=== PATIENT | male | born 1975 | race Caucasian/White ===

== ENCOUNTER 2016-11-12 13:46 | Emergency (ER) | payer BC | END 2016-11-12 18:49 | disposition home or self-care (01) | LOC: ER 13:46 | DX: M43.6 Torticollis (principal); I10 Essential (primary) hypertension; Z79.899 Other long term (current) drug therapy; X58.XXXA Exposure to other specified factors, initial encounter | CPT/HCPCS: 96372; J0360; J1885 ==